=== PATIENT | male | born 1950 | race Caucasian/White ===

== ENCOUNTER 2022-03-20 10:51 | Outpatient (CLI) | payer MEDICARE ==
[2022-03-20 13:12] LABS: Hemoglobin 12.7 g/dL (13.5-17.5); Mean Corpuscular HGB CONC 33.9 g/dL (32.0-36.0); Mean Corpuscular Hemoglobin 32.1 pg (27.0-33.0); Mean Corpuscular Volume 94.7 fl (81.2-95.1); Mean Platelet Volume 10.5 fl (7.4-10.4); Platelet Count 252 10x3/uL (150-450); RBC Distribution Width 12.5 % (11.5-14.5); Red Blood Cell (RBC) Count 3.96 10x6/uL (4.32-5.72); White Blood Cell (WBC) Count 5.5 10x3/uL (3.5-10.5)
[2022-03-20 13:30] LABS: INR-International Normal Ratio 0.9; PTT 27.2 sec (22.0-33.0)
[2022-03-20 14:08] LABS: Anion Gap 10 mmol/L (10-20); BUN (Urea Nitrogen) 21 mg/dL (8.4-25.7); Calc. Creatinine Clearance 0 mL/min (70-130); Carbon Dioxide 24 mmol/L (23-31); Chloride 108 mmol/L (98-107); Estimated GFR 84; Glucose 94 mg/dL (80-115); Potassium 4.4 mmol/L (3.5-5.1); Sodium 138 mmol/L (136-145)
== END 2022-03-20 10:52 | disposition home or self-care (01) ==
LOC: LABBT 10:51
PROVIDERS: ATTEND Surgery
DX: Z01.818 Encounter for other preprocedural examination (principal); M51.16 Intervertebral disc disorders with radiculopathy, lumbar region; M48.061 Spinal stenosis, lumbar region without neurogenic claudication
CPT/HCPCS: 80048; 85027; 85610; 85730; 93005; 93010

== ENCOUNTER 2022-03-23 09:53 | Observation (INO) | payer MEDICARE ==
[2022-03-21 12:06] VITALS: BMI 26.4
[2022-03-23] MEDS ORDERED: Vancomycin 1 GM VIAL ONE (10:09)
[2022-03-23] MEDS ORDERED: Thrombin 5000 UNITS/5 ML VIAL ONE ×2 (10:09→12:38)
[2022-03-23] MEDS ORDERED: CEFAZOLIN 2 GM VIAL ONE (10:22)
[2022-03-23] MEDS ORDERED: Sodium Chloride 0.9% 100 ML ONE (10:22)
[2022-03-23] MEDS ORDERED: Lidocaine 1% MPF 2 ML VIAL ONE (10:23)
[2022-03-23] MEDS ORDERED: PROPOFOL 200 MG/20 ML VIAL ONE (11:18)
[2022-03-23] MEDS ORDERED: Ondansetron PF 4 MG/2 ML Vial ONE (11:18)
[2022-03-23] MEDS ORDERED: Lidocaine 1% PF 5 ML VIAL ONE (11:18)
[2022-03-23] MEDS ORDERED: Rocuronium Bromide 10 MG/ML (10ML VIAL) ONE (11:18)
[2022-03-23] MEDS ORDERED: Dexamethasone 20 MG/5 ML VIAL ONE (11:18)
[2022-03-23] MEDS ORDERED: fentaNYL PF 100 MCG/2 ML SYRINGE ONE ×2 (11:20→14:15)
[2022-03-23 11:39] LABS: SARS-CoV-2 NAA Rapid Test Not Detected (NotDetected)
[2022-03-23] MEDS ORDERED: SUGAMMADEX SODIUM 200 MG/2 ML VIAL ONE (13:25)
[2022-03-23] MEDS ORDERED: Morphine 2 MG/ML VIAL SLOW IVP PRN (13:52)
[2022-03-23] MEDS ORDERED: Acetaminophen/Codeine 30-300mg Tablet PO PRN (13:52)
[2022-03-23] MEDS ORDERED: Acetaminophen 325 MG TAB PO PRN (13:52)
[2022-03-23] MEDS ORDERED: diphenhydrAMINE 25 MG CAP PO PRN (13:52)
[2022-03-23] MEDS ORDERED: traMADol HCl 50 MG TAB PO PRN (13:52)
[2022-03-23] MEDS ORDERED: Ondansetron PF 4 MG/2 ML Vial IVP PRN (13:52)
[2022-03-23] MEDS ORDERED: hydrALAZINE 20 MG/ML VIAL SLOW IVP PRN (13:56)
[2022-03-23] MEDS ORDERED: Promethazine HCl 25 MG/ML VIAL IM PRN (14:16)
[2022-03-23] MEDS ORDERED: Ondansetron HCl/PF 4 MG/2 ML Vial IVP PRN (14:16)
[2022-03-23] MEDS ORDERED: HYDROmorphone 2 MG/ML VIAL SLOW IVP PRN (14:16)
[2022-03-23] MEDS ORDERED: tiZANidine HCl 4 MG TAB PO PRN (14:36)
[2022-03-23] MEDS: Sodium Chloride 0.9% 1,000 ML IV SCH (15:31)
[2022-03-23] MEDS ORDERED: FLU VACC QS2022-23(65YR UP)/PF 240 MCG/0.7 ML SYRINGE IM ONE (16:00)
[2022-03-23] MEDS: CEFAZOLIN 2 GM in Sodium Chloride 0.9% 100 ML IVPB SCH (17:13)
[2022-03-23] MEDS: HYDROcodone/Acetaminophen 7.5/325 mg Tablet PO PRN (17:14)
[2022-03-23] MEDS: CO Q-10 CAPSULE 100 MG PO SCH (20:41)
[2022-03-23] MEDS: Calcium Carbonate 600 MG + Vit D TAB PO SCH (20:41)
[2022-03-23] MEDS ORDERED: Rosuvastatin 10 MG TAB PO SCH (21:00)
[2022-03-24] MEDS: CEFAZOLIN 2 GM in Sodium Chloride 0.9% 100 ML IVPB SCH (02:48)
[2022-03-24] MEDS: HYDROcodone/Acetaminophen 7.5/325 mg Tablet PO PRN (02:55)
[2022-03-24] MEDS: Sodium Chloride 0.9% 1,000 ML IV SCH (03:43)
[2022-03-24] MEDS ORDERED: Levothyroxine Sodium 75 MCG TAB PO SCH (06:00)
[2022-03-24 08:23] VITALS: BP 130/76; TEMP 97.5
[2022-03-24] MEDS ORDERED: Magnesium Oxide 400 MG TAB PO SCH (09:00)
[2022-03-24] MEDS: CO Q-10 CAPSULE 100 MG PO SCH (09:36)
[2022-03-24] MEDS: Calcium Carbonate 600 MG + Vit D TAB PO SCH (09:37)
== END 2022-03-24 10:15 | disposition home or self-care (01) ==
LOC: SDC 09:53 → SURG B 15:24
PROVIDERS: ADMIT Surgery; ATTEND Surgery
PROC: 01NB0ZZ Release Lumbar Nerve, Open Approach (ICD-10-PCS; principal; 2022-03-23)
PROC: 0ST20ZZ Resection of Lumbar Vertebral Disc, Open Approach (ICD-10-PCS; 2022-03-23)
DX: M48.062 Spinal stenosis, lumbar region with neurogenic claudication (principal); M51.16 Intervertebral disc disorders with radiculopathy, lumbar region; E89.0 Postprocedural hypothyroidism; E78.5 Hyperlipidemia, unspecified; Z79.82 Long term (current) use of aspirin; Z79.890 Hormone replacement therapy; Z79.899 Other long term (current) drug therapy; Z20.822 Contact with and (suspected) exposure to COVID-19
CPT/HCPCS: 63047; 63048; U0002; J1100; J2405; J2704; J3370; J3490; J7050